=== PATIENT | male | born 1990 | race Caucasian/White ===

== ENCOUNTER 2017-04-21 16:15 | Emergency (ER) | payer OTHER | END 2017-04-21 20:50 | disposition home or self-care (01) | LOC: ER1 16:15 | DX: S02.2XXA Fracture of nasal bones, initial encounter for closed fracture (principal); S06.0X0A Concussion without loss of consciousness, initial encounter; T14.8 Other injury of unspecified body region; Y04.0XXA Assault by unarmed brawl or fight, initial encounter | CPT/HCPCS: 70450; 70486; 72100; 73130; 73590; 73610; 90471; 90715; 99284 ==